=== PATIENT | female | born 1945 | race Two or more races ===

== ENCOUNTER → 2018-08-02 | Emergency (ER) | payer OTHER ==
[~2018-08-02] VITALS: Ht 162.6 cm; Wt 79.8 kg
[~2018-08-02] MED LIST: AMLODIPINE BESYL5 MG; BENZONATATE100 MG; CHLORTHALIDONE25 MG; COUMADIN4 MG; COZAAR100 MG; DOXYCYCLINE HYC50 MG; FLOVENT DISKU100 MCG; IPRATROPIU0.2 MG/1 M IH; LEVALBUTER1.25 MG/3 IH; METHYLPREDNISOLO4 M1; MUCINEX DM ER1 EAC1 PO; NEBUSAL4 M1 IH; PNEU16DI2; PROMETHAZINE D118 ML PO; SIMVASTATIN40 MG; SINGULAIR10 MG; SYNTHROID50 MCG; TOPROL XL50 M1; TUSSIONEX PENN115 ML PO; XOPENEX0.63 MG/3
== END | disposition home or self-care (01) ==
LOC: ER 01:22
DX: J20.9 Acute bronchitis, unspecified (principal)

== ENCOUNTER 2021-04-06 09:43 | Emergency (ER) | payer OTHER ==
[~2021-04-06] VITALS: Ht 162.6 cm; Wt 79.8 kg
== END 2021-04-06 12:49 | disposition home or self-care (01) ==
LOC: ER 09:43
DX: B34.9 Viral infection, unspecified (principal); U07.1 COVID-19